=== PATIENT | male | born 1995 | race African-American/Black ===

== ENCOUNTER 2017-03-30 12:08 | Emergency (ER) | payer BC ==
[~2017-03-30] VITALS: Ht 177.8 cm; Wt 76.1 kg
[2017-03-30 13:16] LABS: INTERNAL CONTROL VALID? YES; MONOSPOT (MONONUCLEOSIS SEROL) NEGATIVE
[2017-03-30 13:45] VITALS: BP 144/90
== END 2017-03-30 13:46 | disposition home or self-care (01) ==
LOC: EME 12:08
PROVIDERS: Physician Assistant
DX: J02.9 Acute pharyngitis, unspecified (principal)
CPT/HCPCS: 86308; 87651 90; 99281; 99283